=== PATIENT | female | born 1995 | race Two or more races ===

== ENCOUNTER 2024-04-15 14:51 | Emergency (ER) | payer OTHER ==
[~2024-04-15] VITALS: Ht 167.6 cm; Wt 117.9 kg
[2024-04-15] MEDS ORDERED: KETOROLAC TROMETHAMINE 30 MG VIAL IM STA (16:59)
[2024-04-15] MEDS ORDERED: CEFTRIAXONE SODIUM 1,000 MG VIAL IM STA (17:00)
[2024-04-15] MEDS ORDERED: CEFTRIAXONE SODIUM 1,000 MG VIAL ONE (17:05)
[2024-04-15] MEDS ORDERED: KETOROLAC TROMETHAMINE 30 MG VIAL ONE (17:05)
== END 2024-04-15 17:26 | disposition home or self-care (01) ==
LOC: ER 14:52
DX: R22.9 Localized swelling, mass and lump, unspecified (principal)